=== PATIENT | female | born 1980 | race Caucasian/White ===

== ENCOUNTER 2022-05-12 21:29 | Emergency (ER) | payer OTHER ==
[2022-05-12 22:18] LABS: HEMOGLOBIN 14.6 gm/dl (12.3-15.3); RED BLOOD COUNT 5.11 M/UL (4.00-5.10); WHITE BLOOD COUNT 15.3 K/UL (4.5-11.0)
[2022-05-12 22:36] LABS: BUN/CREATININE RATIO 25 (0-10)
[2022-05-13] MEDS ORDERED: AMOX TR-K CLV1 EAC4 PO (03:34)
[2022-05-13] MEDS ORDERED: ZOFRAN ODT 4 MG4 MG GT (03:34)
[2022-05-13] MEDS ORDERED: PERCOCET 5/325 T1 EA PO (03:34)
== END 2022-05-13 04:29 | disposition home or self-care (01) ==
LOC: ER1 21:29
PROVIDERS: Physician Assistant
DX: R10.84 Generalized abdominal pain (principal); R11.2 Nausea with vomiting, unspecified; I51.9 Heart disease, unspecified; Z91.041 Radiographic dye allergy status; Z88.1 Allergy status to other antibiotic agents; Z88.8 Allergy status to other drugs, medicaments and biological substances
CPT/HCPCS: 80053; 81001; 82150; 83690; 84703; 85025; 87086; 96372; 99284; J1885; J2270; J2550